=== PATIENT | male | born 1970 | race Caucasian/White ===

== ENCOUNTER 2017-12-09 20:23 | Emergency (ER) | payer BC ==
[~2017-12-09] VITALS: Ht 180.3 cm; Wt 71.1 kg
[2017-12-09 20:25] VITALS: Ht 180.3 cm; Wt 71.1 kg
[2017-12-09] MEDS ORDERED: SODIUM CHLORIDE 0.9% 1000ML 1,000 ML IV STA (20:40)
[2017-12-09] MEDS ORDERED: CEFAZOLIN IV 2,000 MG in DEXTROSE 5% 50ML 50 ML IV STA (20:40)
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
[2017-12-09] MEDS ORDERED: FENTANYL CITRATE INJ 50 MCG/1 ML 2 ML VIAL IV STA (20:57)
[2017-12-09 21:02] LABS: BASO % 0.2 %; BASO ABS # 0.02 K/uL (0-0.2); EOS % 1.7 %; EOS ABS # 0.14 K/uL (0-0.5); HEMATOCRIT 45.9 % (42-52); HEMOGLOBIN 15.9 g/dL (14.0-18.0); IG# 0.03 K/uL (0.00-0.02); LYMPH % 29.8 %; MEAN CELL VOLUME 89.3 fL (80-100); MEAN CORPUSCULAR HEMOGLOBIN 30.9 pg (25-34); MEAN CORPUSCULAR HGB CONC 34.6 g/dl (32-36); MEAN PLATELET VOLUME 12.6 fL (7.4-10.4); MONO % 9.3 %; MONO ABS # 0.75 K/uL (0.11-0.59); NEUT % 58.6 %; NEUT ABS # 4.72 K/uL (1.4-6.5); PLATELET COUNT 163 K/uL (130-400); RED CELL DISTRIBUTION WIDTH CV 13.6 % (11.5-14.5); RED CELL DISTRIBUTION WIDTH SD 44.5 fL (36.4-46.3); WHITE BLOOD COUNT 8.06 K/uL (4.8-10.8)
[2017-12-09 21:17] LABS: INR 0.9 (0.9-1.1)
[2017-12-09 21:27] LABS: ALBUMIN 3.8 gm/dl (3.4-5.0); CREATININE 1.16 mg/dl (0.60-1.40); TOTAL PROTEIN 6.9 gm/dl (6.4-8.2)
--- NOTE | 2017-12-09 21:33 | DIAGNOSTIC IMAGING REPORT ---
L ELBOW MIN 3 VIEWS ROUTINE CLINICAL HISTORY: Left elbow pain status post trauma COMPARISON: None. DISCUSSION: The study is mildly limited from a technical standpoint. The lateral view is obliqued. The fat pads are not displaced. Arthritic changes are present. No acute fractures are identified. IMPRESSION: 1. Technically limited study 2. Arthritic changes 3. No acute fractures or dislocations identified Electronically signed by: Obi Saucedo M.D. 12/09/2017 9:32 PM Dictated Date/Time: 12/09/2017 9:30 PM
[2017-12-09 21:38] LABS: POTASSIUM 3.8 mmol/L (3.5-5.1)
[2017-12-09] MEDS ORDERED: BUPIVACAINE 0.5 % 5 MG/1 ML PF 10ML VIAL ONE (21:50)
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
[2017-12-09 22:00] VITALS: O2SAT 99
[2017-12-09] MEDS ORDERED: FENTANYL CITRATE INJ 50 MCG/1 ML 2 ML VIAL ONE (22:10)
[2017-12-09] MEDS ORDERED: ATROPINE SULFATE 0.1 MG/ML 5ML SYR IV PRN (22:15)
[2017-12-09] MEDS ORDERED: LABETALOL HCL IV 5 MG/ML 20ML IV PRN (22:15)
[2017-12-09] MEDS ORDERED: EpHEDrine SULFATE INJ 50 MG/ML AMP IV PRN (22:15)
[2017-12-09] MEDS ORDERED: FENTANYL CITRATE INJ 50 MCG/1 ML 2 ML VIAL IV PRN (22:15)
[2017-12-09] MEDS ORDERED: ONDANSETRON INJ 2 MG/ML 2 ML VIAL IV PRN (22:15)
[2017-12-09] MEDS ORDERED: HYDROmorphone INJ 0.5 MG/0.5 ML SYR IV PRN (22:15)
[2017-12-09] MEDS ORDERED: MEPERIDINE HCL 25 MG/ML CARP IV PRN (22:15)
[2017-12-09] MEDS ORDERED: BACITRACIN OINT 15 GM TUBE ONE (22:17)
[2017-12-09] MEDS ORDERED: PROPOFOL IV EMULSION 10 MG/ML 20 ML VIAL ONE (22:32)
[2017-12-09] MEDS ORDERED: LIDOCAINE HCL 2% 2 ML VIAL (20MG/ML) ONE (22:33)
[2017-12-09] MEDS ORDERED: ROCURONIUM BROMID 50MG/5ML SYR ONE (22:33)
[2017-12-09] MEDS ORDERED: NEOSTIGMINE METHYLSULFATE 5 MG/5 ML SYR ONE (22:33)
[2017-12-09] MEDS ORDERED: GLYCOPYRROLATE INJ 0.2 MG/ML VIAL ONE (22:33)
[2017-12-09] MEDS ORDERED: ONDANSETRON INJ 2 MG/ML 2 ML VIAL ONE (22:33)
--- NOTE | 2017-12-09 23:15 | Discharge Instructions ---
Discharge Instructions Date of Service Dec 09, 2017. Admission Reason for Admission: Bleeding, Groin Discharge Discharge Diagnosis / Problem: Scrotal injury Discharge Goals Goal(s): Decrease discomfort, Improve function, Increase independence, Improve disease control, Prevent Disease Progression Activity Recommendations Activity Limitations: per Instructions/Follow-up section Lifting Limitations: gradually increase as tolerated Exercise/Sports Limitations: until after follow-up appointment May Resume Sexual Activity: after follow-up appointment Shower/Bathe: may shower/bathe in 3 days D[address] or Machine Use: resume [address] Echeverria's office will contact you to arrange follow up and drain removal. Office number is [phone] Instructions / Follow-Up Instructions / Follow-Up Please apply bacitracin ointment to the incision twice per day. Please wear tight fitting underwear/scrotal supporter. Please change the gauze dressings as needed. You may shower on Thursday evening. Current Hospital Diet Patient's current hospital diet: Discharge Diet Recommended Diet: Regular Diet Procedures Procedures Performed: exploration and closure of scrotum Pending Studies Studies pending at discharge: no Medical Emergencies . Who to Call and When: Medical Emergencies: If at any time you feel your situation is an emergency, please call 911 immediately. . Non-Emergent Contact Non-Emergency issues call your: Urologist Call Non-Emergent contact if: you have a fever, temperature is above 101.5, your pain is not controlled, your pain is worsening . . "Provider Documentation" section prepared by Carlo Peñaloza. .
--- NOTE | 2017-12-09 23:16 | [facility] Post Operative Brief Note ---
Immediate Operative Summary Operative Date Dec 09, 2017. Pre-Operative Diagnosis scrotal trauma Post-Operative Diagnosis scrotal trauma Procedure(s) Performed exploration, washout, and closure of scrotum Surgeon Deonte Information Assistant Surgeon(s) none Estimated Blood Loss 5cc Findings Consistent with Post-Op Diagnosis Specimens none Drains robyn Anesthesia Type General Complication(s) none Disposition Accompanied Pt To Recover: yes Disposition: Recovery Room / PACU
[2017-12-09] MEDS ORDERED: SODIUM CHLORIDE 0.9% 1000ML 1,000 ML IV SCH (23:17)
[2017-12-09] MEDS ORDERED: HYDR-5688 PO (23:17)
[2017-12-09] MEDS ORDERED: SULF800T23 PO (23:17)
--- NOTE | 2017-12-09 23:26 | [facility] Operative Report ---
Operative Report Operative Date Dec 09, 2017. Pre-Operative Diagnosis scrotal trauma Post-Operative Diagnosis scrotal trauma Procedure(s) Performed exploration, washout, and closure of scrotum Surgeon Deonte Pork Cutlet Maker Surgeon(s) none Estimated Blood Loss 5cc Specimens none Drains robyn Anesthesia Type General Complication(s) none Disposition yes Recovery Room / PACU Description of Procedure Patient was identified in the emergency room after his initial evaluation for significant scrotal laceration. Exploration and evaluation in the emergency room that revealed exposure of the corporal body of the penis as well as full testis and cord structures with hematoma covering a portion of the exposed area limiting our ability to fully assess for deeper injuries. In turn, I consented him for an operative exploration washout and closure. He received appropriate dose of antibiotics in the emergency room before proceeding to the operating suite. Upon arrival in the operative suite, he received appropriate general anesthesia was placed in supine position where he was sterilely prepped and draped. I began by evacuating the hematoma and evaluating under structures. There is minor venous ooze from some of the cord structures, however no damage to the vas deferens with the testicle itself. There was a tunica vaginalis tear , but no damage to the tunica albuginea. The left corporal body of the penis was evaluated as it was exposed secondary to the trauma, however there was no damage to the corpora or adjacent spongiosum. After obtaining meticulous hemostasis from all of the oozing areas, I began reapproximating the scrotal wall. I close this in to primary layers, the first reapproximating dartos fascia. A Robyn drain was placed underneath this closure layer and brought out of the lowest extent of the laceration. I then closed the skin with vertical mattress 2-0 chromic sutures spaced approximately 3 mm to 4 mm apart. There is a good cosmetic reapproximation and closure and good hemostasis. I sutured the drain in place. I infiltrated the wound with quarter percent Marcaine and additionally placed 1/4% Marcaine cord block. Patient was subsequently extubated and taken to the PACU in stable condition after application of an appropriate dressing and scrotal support. I attest to the content of the Intraoperative Record and any orders documented therein. Any exceptions are noted below.
[2017-12-09] MEDS ORDERED: OXYCODONE/ACETAMINOPHEN 5-325 TAB PO PRN ×2 (23:30)
[2017-12-09 23:41] VITALS: BP 126/89; PULSE 94; TEMP 36.3; O2SAT 94
[2017-12-10] MEDS ORDERED: DIPHTHERIA/TETANUS/PERTUSSIS 0.5 ML SYR/VIAL IM. ONE
[2017-12-10 00:20] VITALS: BP 136/84; PULSE 57; TEMP 36.4; O2SAT 96
--- NOTE | 2017-12-10 00:44 | Anesthesiology Progress Note ---
Anesthesia Post Op Note Date & Time Dec 10, 2017 at 00:43 Vital Signs Pain Intensity: 0 Vital Signs Past 12 Hours Date Time Temp Pulse Resp B/P (MAP) Pulse Ox O2 Delivery O2 Flow Rate FiO2 12/10/17 00:00 62 17 127/85 (99) 92 Room Air 12/09/17 23:41 36.3 94 18 126/89 94 Room Air 12/09/17 23:40 59 18 131/76 92 Room Air 12/09/17 23:30 62 18 130/78 94 Room Air 12/09/17 23:20 36.9 65 18 149/83 93 Room Air 12/09/17 22:00 76 16 152/91 99 Room Air 12/09/17 21:30 79 18 151/92 97 Room Air 12/09/17 20:25 36.7 105 18 177/91 91 Room Air Notes Mental Status: alert / awake / arousable, participated in evaluation Pt Amnestic to Procedure: Yes Nausea / Vomiting: adequately controlled Pain: adequately controlled Airway Patency, RR, SpO2: stable & adequate BP & HR: stable & adequate Hydration State: stable & adequate Anesthetic Complications: no major complications apparent
== END 2017-12-09 22:00 | disposition still patient (30) ==
LOC: C.EDB 20:26 → C.EDD 22:00
DX: S31.31XA Laceration without foreign body of scrotum and testes, initial encounter (principal); S50.02XA Contusion of left elbow, initial encounter; W55.82XA Struck by other mammals, initial encounter